=== PATIENT | female | born 1985 | race Two or more races ===

== ENCOUNTER → 2016-11-04 | Outpatient (CLI) | payer SELFPAY ==
[~2016-11-04] MED LIST: ALEVE220 M1 PO; NON-ASPIRIN EX500 M1 PO; NORCO 5-325 TA1 EACH PO; PRENATAL 1+1)(P1 TAB PO; PRILOSEC20 MG PO; ZANTAC150 MG PO
== END | disposition disaster alternative care site (69) ==
LOC: GRAD 08:30
DX: M54.5 Low back pain (principal)